=== PATIENT | male | born 1960 | race Caucasian/White ===

== ENCOUNTER 2017-01-05 09:48 | Day surgery (SDC) | payer MEDICARE, MEDICAID, OTHER ==
[~2017-01-05 09:48] MED LIST: Bupivacaine 0.5% 50 ML MDV ONE; Lidocaine 1% with EPINEPHrine 1:100,000 50 ML MDV ONE; Midazolam 1 MG/ML 2 ML SDV ONE; Propofol 200 MG/20 ML SDV ONE; fentaNYL 100 MCG/2 ML SDV ONE
[2017-01-05] MEDS ORDERED: Lactated Ringers 1,000 ML IV SCH (10:30)
[2017-01-05] MEDS ORDERED: Midazolam 1 MG/ML 2 ML SDV ONE (11:16)
[2017-01-05] MEDS ORDERED: Propofol 200 MG/20 ML SDV ONE (11:21)
[2017-01-05 12:42] VITALS: BP 195/97
--- NOTE | 2017-01-05 12:47 | OR ---
DATE OF PROCEDURE: 01/05/2017 PREOPERATIVE DIAGNOSIS: Right upper arm subcutaneous mass. POSTOPERATIVE DIAGNOSIS: A 2 cm right upper arm subcutaneous mass consistent with a lipoma. PROCEDURE: Excision of 2 cm right upper arm subcutaneous mass. SURGEON: Mateusz Phelps MD. ANESTHESIA: IV anesthesia with monitored anesthesia care. INDICATION: This 56-year-old white male has a fairly indistinct mass in his right upper arm which bothers him. He is here to have it excised. It is in the subcutaneous tissue. CAT scan shows no evidence of intramuscular or other involvement. I counseled him for excision of this including risks and alternatives, and he gave his informed consent to proceed. DESCRIPTION OF PROCEDURE: The patient was placed in the left lateral decubitus position. IV anesthesia was administered by the Anesthesia Service. His right upper proximal arm was prepped and draped in the usual sterile fashion. Time-out was held. Lidocaine 1% with epinephrine in a 50:50 mix with 0.5% Marcaine was infiltrated over the site which he indicated and was marked. A longitudinal incision was made over this, and the subcutaneous tissue was excised. It was found to be consistent with a lipoma. It measured about 2 cm in diameter. We included the underlying fascia with the specimen. Hemostasis was obtained with electrocautery. All looked well. The skin was closed with a running stitch of 3-0 Prolene. A sterile dressing was applied. He tolerated the procedure well and was brought to recovery room in a good condition. Mateusz Phelps MD /[id number] [facility]
== END 2017-01-05 12:35 | disposition home or self-care (01) ==
LOC: JP.SDS 09:48
PROVIDERS: ATTEND Surgery
DX: D17.21 Benign lipomatous neoplasm of skin and subcutaneous tissue of right arm (principal)
CPT/HCPCS: 24076; 88304; J2250; J2704; J3010; J7120